=== PATIENT | male | born 1995 | race Caucasian/White ===

== ENCOUNTER 2016-09-29 23:18 | Emergency (ER) | payer SELFPAY ==
[~2016-09-29] VITALS: Ht 188 cm; Wt 83.9 kg
[2016-09-30 00:44] VITALS: BP 117/98
== END 2016-09-30 00:44 | disposition home or self-care (01) ==
LOC: ED 23:18
DX: S83.005A Unspecified dislocation of left patella, initial encounter (principal); X58.XXXA Exposure to other specified factors, initial encounter; Y93.67 Activity, basketball; Y92.89 Other specified places as the place of occurrence of the external cause; Y99.8 Other external cause status
CPT/HCPCS: Q0092